=== PATIENT | female | born 1945 | race Caucasian/White ===

== ENCOUNTER 2019-04-05 13:26 | Outpatient (CLI) | payer OTHER | END 2019-04-05 23:59 | disposition home or self-care (01) | LOC: VAS 13:26 | DX: I08.3 Combined rheumatic disorders of mitral, aortic and tricuspid valves (principal); I65.23 Occlusion and stenosis of bilateral carotid arteries; H34.12 Central retinal artery occlusion, left eye; E78.00 Pure hypercholesterolemia, unspecified; E72.19 Other disorders of sulfur-bearing amino-acid metabolism; I70.0 Atherosclerosis of aorta; I10 Essential (primary) hypertension | CPT/HCPCS: 93306; 93880 ==